=== PATIENT | female | born 1965 | race Caucasian/White ===

== ENCOUNTER 2017-11-06 20:10 | Emergency (ER) | payer OTHER ==
[~2017-11-06] VITALS: Ht 162.6 cm; Wt 90.7 kg
[~2017-11-06 20:10] MED LIST: AMOX1TAB12 PO; BACTROBAN22 GM TP; DICLOFENAC SODI50 MG PO; HIBICLENS118 ML TP; KETO10TA2 PO; TOBRADEX EYE DR10 ML OP
[2017-11-06] MEDS ORDERED: NORFLEX100MG PO (22:51)
[2017-11-06] MEDS ORDERED: DICLOFENAC SODI50 MG PO (22:51)
== END 2017-11-06 22:54 | disposition home or self-care (01) ==
LOC: ER 20:10
DX: M54.2 Cervicalgia (principal); M25.562 Pain in left knee; M25.561 Pain in right knee; M25.511 Pain in right shoulder

== ENCOUNTER 2018-07-16 20:29 | Emergency (ER) | payer OTHER ==
[~2018-07-16] VITALS: Ht 162.6 cm; Wt 80.7 kg
[~2018-07-16 20:29] MED LIST changes: +NORFLEX100MG PO
[2018-07-16] MEDS ORDERED: PERCOCET 5-3251 EACH PO (23:10)
== END 2018-07-17 01:49 | disposition home or self-care (01) ==
LOC: ER 20:29
DX: M54.5 Low back pain (principal)

== ENCOUNTER 2018-07-25 16:48 | Emergency (ER) | payer OTHER ==
[~2018-07-25] VITALS: Ht 162.6 cm; Wt 90.7 kg
[~2018-07-25 16:48] MED LIST changes: +PERCOCET 5-3251 EACH PO
== END 2018-07-25 18:04 | disposition home or self-care (01) ==
LOC: ER 16:48
DX: M54.89 Other dorsalgia (principal)

== ENCOUNTER 2019-10-21 14:11 | Emergency (ER) | payer OTHER ==
[~2019-10-21] VITALS: Ht 165.1 cm; Wt 89.8 kg
== END 2019-10-21 18:32 | disposition home or self-care (01) ==
LOC: ER 14:11
DX: J11.1 Influenza due to unidentified influenza virus with other respiratory manifestations (principal)

== ENCOUNTER 2023-11-10 15:19 | Emergency (ER) | payer OTHER ==
[~2023-11-10] VITALS: Ht 162.6 cm; Wt 72.6 kg
== END 2023-11-10 17:26 | disposition home or self-care (01) ==
LOC: ER → EDBD 15:20 → ER 15:20
DX: R53.1 Weakness (principal); Z20.822 Contact with and (suspected) exposure to COVID-19; Z88.2 Allergy status to sulfonamides; Z88.8 Allergy status to other drugs, medicaments and biological substances

== ENCOUNTER 2024-01-09 16:54 | Emergency (ER) | payer OTHER ==
[~2024-01-09] VITALS: Ht 162.6 cm; Wt 73.5 kg
[2024-01-09] MEDS ORDERED: KETOROLAC TROMETHAMINE 60 MG VIAL IM STA (20:28)
[2024-01-09] MEDS ORDERED: ORPHENADRINE CITRATE 30 MG/ML AMPUL IM STA (20:29)
== END 2024-01-09 21:25 | disposition home or self-care (01) ==
LOC: ER 16:55
DX: G24.3 Spasmodic torticollis (principal); Z88.2 Allergy status to sulfonamides
CPT/HCPCS: 96372; 99282; J1885; J2360

== ENCOUNTER 2025-04-19 03:51 | Emergency (ER) | payer OTHER ==
[~2025-04-19] VITALS: Ht 165.1 cm; Wt 73.0 kg
[~2025-04-19 03:51] MED LIST changes: +FLUCONAZOLE100 MG PO; +LEVAQUIN750 MG PO; +LOTRISONE CREAM45 GM TOP; +TERBINAFINE HC250 MG PO
[2025-04-19] MEDS ORDERED: LACTOBACILLUS ACIDOPHILUS 1 CAP CAP PO STA (04:24)
[2025-04-19] MEDS ORDERED: ONDANSETRON HCL 2 MG/ML VIAL IV STA (04:24)
[2025-04-19] MEDS ORDERED: FAMOTIDINE/PF 20 MG/2 ML VIAL IV PUSH STA (04:25)
[2025-04-19] MEDS ORDERED: 0.9 % SODIUM CHLORIDE 1,000 ML IV ONE (04:30)
[2025-04-19 04:52] LABS: BASO % 0.1 % (0.1-1.2); EOS # 0.12 (0.04-0.54); EOS % 0.9 % (0.7-7.0); LYMPH # 2.39 (1.18-3.74); LYMPH % 17.5 % (19.3-53.1); MEAN PLATELET VOLUME 10.10 fl (9.4-12.4); MONO # 0.78 (0.24-0.82); MONO % 5.7 % (4.7-12.5); NEUT # 10.34 (1.56-6.13); NEUT % 75.5 % (34.0-71.1); RED CELL DISTRIBUTION WIDTH 13.8 % (11.6-14.4)
[2025-04-19 05:20] LABS: ALT/SGPT 18.0 U/L (12-78); AST/SGOT 13.0 U/L (15-37); BILIRUBIN TOTAL 0.7 mg/dL (0.3-1.2); BUN CREA RATIO 28.0 (7.0-25.0); CREATININE SERUM 0.61 mg/dL (0.55-1.02); GFR 99.71; GLOBULINA 3.5 G/DL (2.4-3.5); GLUCOSE FASTING 101.0 mg/dL (65-100); OSMOLALITY SERUM 287.0 MOSM/KG (275-295)
[2025-04-19 05:38] LABS: URINE APPEARANCE Clear; URINE BILIRRUBIN Negative (NEGATIVE); URINE BLOOD Negative; URINE COLOR Yellow; URINE GLUCOSE Negative (NEGATIVE); URINE KETONE 15 (NEGATIVE); URINE LEUKOCYTE Trace; URINE NITRATE Negative; URINE PROTEIN Trace (NEGATIVE); URINE UROBILINOGEN 0.2 E.U./dl
[2025-04-19 05:42] LABS: URINE BACTERIA 94.7 uL (0.0-1933); URINE EPITHELIAL CELLS 16.7 uL (0.0-38.8); URINE RBC 3.5 uL (0.0-20.8); URINE WBC 33.5 uL (0.0-23.2)
[2025-04-19 06:13] LABS: URINE CAST 0.00 uL (0.0-1.40)
[2025-04-19 06:14] LABS: TYPE CELLS SQUAMOUS
[2025-04-19 08:03] VITALS: BP 118/67; O2SAT 100
== END 2025-04-19 12:26 | disposition home or self-care (01) ==
LOC: ER 03:51
PROVIDERS: General Practice
DX: R11.0 Nausea (principal); R53.81 Other malaise; I10 Essential (primary) hypertension